=== PATIENT | male | born 1965 | race Two or more races ===

== ENCOUNTER 2024-04-07 09:27 | Outpatient (AMB) | payer MEDICAID, SELFPAY ==
--- NOTE | 2024-04-07 11:06 | PD.ORTHCLVIS ---
Vital signs 04/07/24 11:07 Height 1.6 m Height Method Stated Weight 146.539 kg Weight Measurement Method Standing Scale BMI 57.2 BP 157/96 H Blood Pressure Source Automatic Cuff Blood Pressure Location Left Upper Arm Position Sitting Respiration 19 Pulse 71 Pulse Source Monitor Temp 97.5 F Temp Source Temporal Artery Scan Pulse Oximetry (%) 88 L Oxygen Delivery Method Room Air Med/Allergies Allergies & Medications Allergies No Known Allergies Allergy (Verified 04/07/24 11:08) Medication Reconciliation aspirin 81 mg tablet,delayed release 81 mg PO QDAY 04/07/24 [History Confirmed 04/07/24] diclofenac sodium 1 % topical gel (Aleve (diclofenac)) 2 g topical QID 04/07/24 [History Confirmed 04/07/24] empagliflozin 25 mg tablet (Jardiance) 25 mg PO QAM 04/07/24 [History Confirmed 04/07/24] ergocalciferol (vitamin D2) 1,250 mcg (50,000 unit) capsule (Vitamin D2) 1,250 mcg PO QMONTH 04/07/24 [History Confirmed 04/07/24] gabapentin 400 mg capsule 400 mg PO QDAY 04/07/24 [History Confirmed 04/07/24] insulin lispro 200 unit/mL (3 mL) subcutaneous pen (Humalog KwikPen U-200 Insulin) 20 unit subcut QDAY 04/07/24 [History Confirmed 04/07/24] lidocaine 5 % topical patch 1 patch topical QDAY 04/07/24 [History Confirmed 04/07/24] lisinopril 40 mg tablet 40 mg PO QDAY 04/07/24 [History Confirmed 04/07/24] metformin 1,000 mg tablet 1,000 mg PO QDAY 04/07/24 [History Confirmed 04/07/24] semaglutide 0.25 mg or 0.5 mg (2 mg/3 mL) subcutaneous pen injector (Ozempic) 0.25 mg subcut QWEEK 04/07/24 [History Confirmed 04/07/24] simvastatin 20 mg tablet 20 mg PO QDAY 04/07/24 [History Confirmed 04/07/24] Subjective Visit Visit for: new patient and knee Immunization / Flu Flu Vaccine in the Last 12 Months: No Flu Vaccine Exclusion Criteria: No Exclusion Criteria History of Present Illness Chief complaint: Left knee pain Patient is a pleasant 59-year-old male with a left knee pain. He is morbidly obese with a BMI of 57. He has had 1 injection with minimal relief. He takes anti-inflammatories. He is walks with a cane Pain Pain level (0-10): 7 Pain duration: CONSTANT Pain location: inside (medial) Pain quality: sharp and aching Pain timing: night, increases with activity and stairs Associated signs & symptoms: numbness, weakness and stiffness Ambulatory data Ambulatory device: other (specify) (CRUTCHES) Treatments Improvement with previous injections: No Improvement with PT: No Improvement with NSAIDS: no Review of Systems Review of Systems: All systems negative unless otherwise noted in HPI. Exam Exam Patient is in no acute distress and is cooperative with the examination today. Breathing is nonlabored. In no respiratory distress. Bilateral extremities were evaluated and demonstrates sensation intact to light touch. Palpable pedal pulses are present. No significant edema is present. Bilateral hips were examined. The patient has no pain with log roll of the hips. Internal rotation to 30 degrees and external rotation to 30 degrees is painless. Negative FADIR. The left knee was examined. The left knee is in [varus] alignment. Range of motion from [0-115] degrees. Knee is stable to varus and valgus as well as AP translation with <5mm. Patient has a [negative] McMurrays. There is [no] pain with patellofemoral compression and [no] crepitus noted. The knee is [tender] to palpation [medially]. The right knee was also examined. The right knee is in [varus] alignment. Range of motion from [0-120] degrees. Knee is stable to varus and valgus as well as AP translation with <5mm. Patient has a [negative] McMurrays. There is [no] pain with patellofemoral compression and [no] crepitus noted. The knee is [tender] to palpation [medially]. Assessment and Plan Problem List (1) Degenerative arthritis of knee, bilateral: Status: Acute Plan: Patient is a 59-year-old male with bilateral knee pain and bilateral knee arthritis. We discussed nonoperative operative options. I ordered repeat x-rays as he does not have them with him. We will need weightbearing x-rays. He unfortunately is not a candidate for surgery. He is working on weight loss. We will likely do cortisone injections at the next visit as it has been 3 months. Office Procedures GNS Level of Care Nursing/Assessment Patient Status: Initial/New Patient Nursing Assessment/Reassesment: Medication Reconciliation, Update PMH in EMR and Vital Signs Coordination of Care: Complex Care and Chronic Disease 1-5, Education Complex Pt/Fam, Consent,records obtained, informed consent and Staff clarify orders Special Needs: Language special needs New Patient Charge New Patient Point Assignment: 1089 New Patient Point Charge: CHAIR INSPECTOR Level 3 ([id number]) Past Medical History Past Medical History Have you ever been diagnosed with any of the following: Respiratory Problems Smoking: No Smoking Exposure: No Endocrine Problems Diabetes Mellitus Type 1: Yes
[2024-04-07 11:07] VITALS: BP 157/96; PULSE 71; RESP 19; TEMP 36.4; O2SAT 88; BMI 57.2
== END 2024-04-07 11:32 | disposition home or self-care (01) ==
PROVIDERS: PCP Physician Assistant Medical; Referring Provider Physician Assistant Medical; Supervising Provider Orthopaedic Surgery Adult Reconstructive Orthopaedic Surgery; Visit Provider Orthopaedic Surgery Adult Reconstructive Orthopaedic Surgery
DX: M17.0 Bilateral primary osteoarthritis of knee (principal); M25.562 Pain in left knee; M25.561 Pain in right knee; E66.01 Morbid (severe) obesity due to excess calories; Z68.43 Body mass index [BMI] 50.0-59.9, adult
CPT/HCPCS: 99203; G0463

== ENCOUNTER 2024-04-21 14:16 | Outpatient (AMB) | payer MEDICARE, MEDICAID, SELFPAY ==
--- NOTE | 2024-04-21 13:11 | PD.ORTHTELE ---
Med/Allergies Allergies & Medications Allergies No Known Allergies Allergy (Verified 04/21/24 13:11) Medication Reconciliation aspirin 81 mg tablet,delayed release 81 mg PO QDAY 04/07/24 [History Confirmed 04/21/24] diclofenac sodium 1 % topical gel (Aleve (diclofenac)) 2 g topical QID 04/07/24 [History Confirmed 04/21/24] empagliflozin 25 mg tablet (Jardiance) 25 mg PO QAM 04/07/24 [History Confirmed 04/21/24] ergocalciferol (vitamin D2) 1,250 mcg (50,000 unit) capsule (Vitamin D2) 1,250 mcg PO QMONTH 04/07/24 [History Confirmed 04/21/24] gabapentin 400 mg capsule 400 mg PO QDAY 04/07/24 [History Confirmed 04/21/24] insulin lispro 200 unit/mL (3 mL) subcutaneous pen (Humalog KwikPen U-200 Insulin) 20 unit subcut QDAY 04/07/24 [History Confirmed 04/21/24] lidocaine 5 % topical patch 1 patch topical QDAY 04/07/24 [History Confirmed 04/21/24] lisinopril 40 mg tablet 40 mg PO QDAY 04/07/24 [History Confirmed 04/21/24] metformin 1,000 mg tablet 1,000 mg PO QDAY 04/07/24 [History Confirmed 04/21/24] semaglutide 0.25 mg or 0.5 mg (2 mg/3 mL) subcutaneous pen injector (Ozempic) 0.25 mg subcut QWEEK 04/07/24 [History Confirmed 04/21/24] simvastatin 20 mg tablet 20 mg PO QDAY 04/07/24 [History Confirmed 04/21/24] Subjective Visit Visit for: new patient, follow up visit, knee and x-rays Immunization / Flu Flu Vaccine in the Last 12 Months: No Flu Vaccine Exclusion Criteria: Refused by Patient and No Exclusion Criteria History of Present Illness Chief complaint: Left knee pain Patient is a pleasant 59-year-old male with a left knee pain. He is morbidly obese with a BMI of 57. He has had 1 injection with minimal relief. He takes anti-inflammatories. He walks with a cane. He is here for phone xray results. Pain Pain level (0-10): 7 Pain duration: CONSTANT Pain location: inside (medial) and outside (lateral) Pain quality: sharp, dull and aching Pain timing: night, increases with activity and stairs Associated signs & symptoms: numbness, weakness and stiffness Ambulatory data Ambulatory device: other (specify) (CRUTCHES) and none Treatments Improvement with previous injections: No Improvement with PT: No Improvement with NSAIDS: no Review of Systems Review of Systems: All systems negative unless otherwise noted in HPI. Assessment and Plan Problem List (1) Degenerative arthritis of knee, bilateral: Status: Acute Plan: Patient is a 59-year-old male with bilateral knee pain and bilateral knee arthritis. We discussed nonoperative operative options. He has bone on bone arthritis of significant severity bilaterally. He unfortunately is not a candidate for surgery given his BMI at this time. He is working on weight loss. We will plan for an injection at the next visit in 2 months. Office Procedures GNS Level of Care Nursing/Assessment Patient Status: Established Patient Nursing Assessment/Reassesment: Medication Reconciliation, Update PMH in EMR and Vital Signs Coordination of Care: Complex Care and Chronic Disease 1-5, Education Complex Pt/Fam, Consent,records obtained, informed consent, 1 Ins Authorization, Results/Orders obtained and Staff clarify orders Special Needs: Language special needs Established Patient Charge Established Patient Point Assignment: 110 Telehealth Telemed Phone/Video with patient at home & ,PA,MAINTENANCE MECHANIC TECHNICIAN: Yes
== END 2024-04-21 14:16 | disposition home or self-care (01) ==
LOC: HODSRG 14:16
PROVIDERS: PCP Physician Assistant Medical; Referring Provider Physician Assistant Medical; Supervising Provider Orthopaedic Surgery Adult Reconstructive Orthopaedic Surgery; Visit Provider Orthopaedic Surgery Adult Reconstructive Orthopaedic Surgery
DX: M17.0 Bilateral primary osteoarthritis of knee (principal); M25.562 Pain in left knee; M25.561 Pain in right knee; E66.01 Morbid (severe) obesity due to excess calories; Z68.43 Body mass index [BMI] 50.0-59.9, adult
CPT/HCPCS: 99212; G0463

== ENCOUNTER 2024-07-10 12:59 | Outpatient (AMB) | payer MEDICARE, MEDICAID, SELFPAY ==
[2024-07-10 13:11] VITALS: BP 137/73; PULSE 83; RESP 20; TEMP 36.6; O2SAT 87; BMI 58.5
--- NOTE | 2024-07-10 13:11 | ORTHONT_ITS ---
Vital signs 07/10/24 13:11 Height 1.6 m Height Method Stated Weight 149.884 kg Weight Measurement Method Standing Scale BMI 58.5 BP 137/73 H Blood Pressure Source Automatic Cuff Blood Pressure Location Right Upper Arm Position Sitting Respiration 20 Pulse 83 Pulse Source Monitor Temp 97.8 F Temp Source Temporal Artery Scan Pulse Oximetry (%) 87 L Oxygen Delivery Method Room Air Med/Allergies Allergies & Medications Allergies No Known Allergies Allergy (Verified 07/10/24 13:12) Medication Reconciliation aspirin 81 mg tablet,delayed release 81 mg PO QDAY 04/07/24 [History Confirmed 07/10/24] diclofenac sodium 1 % topical gel (Aleve (diclofenac)) 2 g topical QID 04/07/24 [History Confirmed 07/10/24] empagliflozin 25 mg tablet (Jardiance) 25 mg PO QAM 04/07/24 [History Confirmed 07/10/24] ergocalciferol (vitamin D2) 1,250 mcg (50,000 unit) capsule (Vitamin D2) 1,250 mcg PO QMONTH 04/07/24 [History Confirmed 07/10/24] gabapentin 400 mg capsule 400 mg PO QDAY 04/07/24 [History Confirmed 07/10/24] insulin lispro 200 unit/mL (3 mL) subcutaneous pen (Humalog KwikPen U-200 Insulin) 20 unit subcut QDAY 04/07/24 [History Confirmed 07/10/24] lidocaine 5 % topical patch 1 patch topical QDAY 04/07/24 [History Confirmed 07/10/24] lisinopril 40 mg tablet 40 mg PO QDAY 04/07/24 [History Confirmed 07/10/24] metformin 1,000 mg tablet 1,000 mg PO QDAY 04/07/24 [History Confirmed 07/10/24] semaglutide 0.25 mg or 0.5 mg (2 mg/3 mL) subcutaneous pen injector (Ozempic) 0.25 mg subcut QWEEK 04/07/24 [History Confirmed 07/10/24] simvastatin 20 mg tablet 20 mg PO QDAY 04/07/24 [History Confirmed 07/10/24] Exam Exam Patient is in no acute distress and is cooperative with the examination today. Breathing is nonlabored. In no respiratory distress. Bilateral extremities were evaluated and demonstrates sensation intact to light touch. Palpable pedal pulses are present. No significant edema is present. Bilateral hips were examined. The patient has no pain with log roll of the hips. Internal rotation to 30 degrees and external rotation to 30 degrees is painless. Negative FADIR. The left knee was examined. The left knee is in [varus] alignment. Range of motion from [0-115] degrees. Knee is stable to varus and valgus as well as AP translation with <5mm. Patient has a [negative] McMurrays. There is [no] pain with patellofemoral compression and [no] crepitus noted. The knee is [tender] to palpation [medially]. The right knee was also examined. The right knee is in [varus] alignment. Range of motion from [0-120] degrees. Knee is stable to varus and valgus as well as AP translation with <5mm. Patient has a [negative] McMurrays. There is [no] pain with patellofemoral compression and [no] crepitus noted. The knee is [tender] to palpation [medially]. Assessment and Plan Problem List (1) Degenerative arthritis of knee, bilateral: Status: Acute Plan: Patient is a 59-year-old male with bilateral knee pain and bilateral knee arthritis. We discussed nonoperative operative options. He has bone on bone arthritis of significant severity bilaterally. He unfortunately is not a candidate for surgery given his BMI at this time. He is working on weight loss. Recommend knee cortisone injections as patient would like to proceed with conservative treatment at this time. The risks and benefits of the procedure were reviewed with the patient and patient gave verbal consent to continue with the procedure. Procedure: performed by Dr. Lowe Using sterile technique the Bilateral knees were thoroughly prepped with alcohol, and approximately 1 cc of Kenalog 40 mg/mL and 4 cc of 1% lidocaine was injected into each knee without resistance into the medial tibial femoral joint space. The patient tolerated the procedure. Office Procedures GNS Level of Care Nursing/Assessment Patient Status: Established Patient Nursing Assessment/Reassesment: Medication Reconciliation, Update PMH in EMR and Vital Signs Coordination of Care: Complex Care and Chronic Disease 1-5, Education Complex Pt/Fam, Consent,records obtained, informed consent, Results/Orders obtained and Staff clarify orders Special Needs: Language special needs Established Patient Charge Established Patient Point Assignment: 95 Established Patient Point Charge: EP Level 3 (80-115) Surgical Proc/IM SQ injection Major Surgical Procedure: Yes (KNEE INJECTIONS ) Medication Given Medication Given Medication Given: Yes Documented Dose Given: 8 Route: Infiitration Medication Given Medication Given Medication Given: Yes Documented Dose Given: 2 Route: Infiitration Office Meds Xylocaine 10 mg/mL (1 %) injection solution Performing Provider: Maxwell Lowe MD Performing Location: [facility] Administered by: Maxwell Lowe MD on 07/10/24 13:24 Dose Route Admin Location Dispensed Lot Number Expiration Date [facility] Resident Medical Officer 40 mL Infiltration 40 mL [id number] [employer] triamcinolone acetonide 40 mg/mL suspension for injection Performing Provider: Maxwell Lowe MD Performing Location: [facility] Administered by: Maxwell Lowe MD on 07/10/24 13:24 Dose Route Admin Location Dispensed Lot Number Expiration Date [facility] Resident Medical Officer 80 mg intra-articular 2 mL [id number] [employer] [place] Intake Visit Data Collection New Patient or Established: Established Patient (seen at [facility] within 3 years) Reason for Visit:: REQ KNEE INJECTIONS Seen by Clinical Staff ONLY (RN/MA): No Marketing Senior Recruiter Required: Yes PCP or OBGYN visit in last 3 months: Yes Hx Now: No Do You Feel Safe at Home: Yes Authorities Contacted: N/A Questionairres Past Medical History Past Medical History Have you ever been diagnosed with any of the following: Respiratory Problems Smoking: No Smoking Exposure: No Endocrine Problems Diabetes Mellitus Type 1: Yes Subjective Visit Visit for: follow up visit, knee and injections Immunization / Flu Flu Vaccine in the Last 12 Months: No Flu Vaccine Exclusion Criteria: No Exclusion Criteria History of Present Illness Chief complaint: bilateral knee pain Maternal Sherron fields patient is a 59-year-old male with bilateral knee pain and bilateral knee arthritis. He had injections previously . He is working on losing weight and is on Ozempic Pain Pain level (0-10): 8 Pain duration: ALL DAY Pain location: anterior Pain quality: sharp Pain timing: increases with activity and stairs Associated signs & symptoms: none Ambulatory data Ambulatory device: other (specify) (CRUTCH) Treatments Improvement with previous injections: No Improvement with PT: No Improvement with NSAIDS: no Review of Systems Review of Systems: All systems negative unless otherwise noted in HPI.
== END 2024-07-10 13:23 | disposition home or self-care (01) ==
LOC: HODSRG 12:59
PROVIDERS: PCP Physician Assistant Medical; Referring Provider Physician Assistant Medical; Supervising Provider Orthopaedic Surgery Adult Reconstructive Orthopaedic Surgery; Visit Provider Orthopaedic Surgery Adult Reconstructive Orthopaedic Surgery
DX: M17.0 Bilateral primary osteoarthritis of knee (principal); M25.562 Pain in left knee; M25.561 Pain in right knee; E10.9 Type 1 diabetes mellitus without complications
CPT/HCPCS: 20610; 99213; J3301; J3490; G0463

== ENCOUNTER 2024-10-06 13:05 | Outpatient (AMB) | payer MEDICARE, MEDICAID, SELFPAY ==
[2024-10-06 13:23] VITALS: BP 123/72; PULSE 89; RESP 18; TEMP 36.4; O2SAT 85; BMI 57.4
--- NOTE | 2024-10-06 13:23 | ORTHONT_ITS ---
Vital signs 10/06/24 13:23 Height 1.6 m Height Method Stated Weight 147.049 kg Weight Measurement Method Standing Scale BMI 57.4 BP 123/72 Blood Pressure Source Automatic Cuff Blood Pressure Location Left Upper Arm Position Sitting Respiration 18 Pulse 89 Pulse Source Monitor Temp 97.6 F Temp Source Temporal Artery Scan Pulse Oximetry (%) 85 L Oxygen Delivery Method Room Air Med/Allergies Allergies & Medications Allergies No Known Allergies Allergy (Verified 10/06/24 13:25) Medication Reconciliation aspirin 81 mg tablet,delayed release 81 mg PO QDAY 04/07/24 [History Confirmed 10/06/24] diclofenac sodium 1 % topical gel (Aleve (diclofenac)) 2 g topical QID 04/07/24 [History Confirmed 10/06/24] empagliflozin 25 mg tablet (Jardiance) 25 mg PO QAM 04/07/24 [History Confirmed 10/06/24] ergocalciferol (vitamin D2) 1,250 mcg (50,000 unit) capsule (Vitamin D2) 1,250 mcg PO QMONTH 04/07/24 [History Confirmed 10/06/24] gabapentin 400 mg capsule 400 mg PO QDAY 04/07/24 [History Confirmed 10/06/24] insulin lispro 200 unit/mL (3 mL) subcutaneous pen (Humalog KwikPen U-200 Insulin) 20 unit subcut QDAY 04/07/24 [History Confirmed 10/06/24] lidocaine 5 % topical patch 1 patch topical QDAY 04/07/24 [History Confirmed 10/06/24] lisinopril 40 mg tablet 40 mg PO QDAY 04/07/24 [History Confirmed 10/06/24] metformin 1,000 mg tablet 1,000 mg PO QDAY 04/07/24 [History Confirmed 10/06/24] semaglutide 0.25 mg or 0.5 mg (2 mg/3 mL) subcutaneous pen injector (Ozempic) 0.25 mg subcut QWEEK 04/07/24 [History Confirmed 10/06/24] simvastatin 20 mg tablet 20 mg PO QDAY 04/07/24 [History Confirmed 10/06/24] Exam Exam Patient is in no acute distress and is cooperative with the examination today. Breathing is nonlabored. In no respiratory distress. Bilateral extremities were evaluated and demonstrates sensation intact to light touch. Palpable pedal pulses are present. No significant edema is present. Bilateral hips were examined. The patient has no pain with log roll of the hips. Internal rotation to 30 degrees and external rotation to 30 degrees is painless. Negative FADIR. The left knee was examined. The left knee is in [varus] alignment. Range of motion from [0-115] degrees. Knee is stable to varus and valgus as well as AP translation with <5mm. Patient has a [negative] McMurrays. There is [no] pain with patellofemoral compression and [no] crepitus noted. The knee is [tender] to palpation [medially]. The right knee was also examined. The right knee is in [varus] alignment. Range of motion from [0-120] degrees. Knee is stable to varus and valgus as well as AP translation with <5mm. Patient has a [negative] McMurrays. There is [no] pain with patellofemoral compression and [no] crepitus noted. The knee is [tender] to palpation [medially]. X-rays demonstrate complete joint space narrowing medially with varus arthritis Assessment and Plan Problem List (1) Degenerative arthritis of knee, bilateral: Status: Acute Plan: Patient is a 59-year-old male with bilateral knee pain and bilateral knee arthritis. We discussed nonoperative operative options. He has bone on bone arthritis of significant severity bilaterally. He unfortunately is not a candidate for surgery given his BMI at this time. He is working on weight loss. Recommend knee cortisone injections as patient would like to proceed with conservative treatment at this time. The risks and benefits of the procedure were reviewed with the patient and patient gave verbal consent to continue with the procedure. Procedure: performed by Dr. Lowe Using sterile technique the Bilateral knees were thoroughly prepped with alcohol, and approximately 1 cc of Kenalog 40 mg/mL and 4 cc of 1% lidocaine was injected into each knee without resistance into the medial tibial femoral joint space. The patient tolerated the procedure. Office Procedures GNS Level of Care Nursing/Assessment Patient Status: Established Patient Nursing Assessment/Reassesment: Medication Reconciliation, Update PMH in EMR and Vital Signs Coordination of Care: Complex Care and Chronic Disease 1-5, Education Complex Pt/Fam, Consent,records obtained, informed consent, Results/Orders obtained and Staff clarify orders Special Needs: Language special needs Established Patient Charge Established Patient Point Assignment: 95 Established Patient Point Charge: EP Level 2 (40-75) Surgical Proc/IM SQ injection Major Surgical Procedure: Yes Medication Given Medication Given Medication Given: Yes Documented Dose Given: 8 Route: Infiitration Medication Given Medication Given Medication Given: Yes Documented Dose Given: 2 Route: Infiitration Office Meds Xylocaine 10 mg/mL (1 %) injection solution Performing Provider: Maxwell Lowe MD Performing Location: [facility] Administered by: Maxwell Lowe MD on 10/06/24 13:28 Dose Route Admin Location Dispensed Lot Number Expiration Date [facility] Insurance Claims Representative 40 mL Infiltration 40 mL [id number] 12/15/27 87163-004-09 [facility] triamcinolone acetonide 40 mg/mL suspension for injection Performing Provider: Maxwell Lowe MD Performing Location: [facility] Administered by: Maxwell Lowe MD on 10/06/24 13:28 Dose Route Admin Location Dispensed Lot Number Expiration Date [facility] Insurance Claims Representative 80 mg intra-articular 2 mL [id number] 04/15/26 8945-4026-60 [facility] [place] Intake Visit Data Collection New Patient or Established: Established Patient (seen at [facility] within 3 years) Reason for Visit:: KNEE PAIN Seen by Clinical Staff ONLY (RN/MA): No Verbal consent obtained for Telemed visit?: No Spa Director Required: Yes PCP or OBGYN visit in last 3 months: Yes Hx Now: No Do You Feel Safe at Home: Yes Authorities Contacted: N/A Questionairres Past Medical History Past Medical History Have you ever been diagnosed with any of the following: Respiratory Problems Smoking: No Smoking Exposure: No Endocrine Problems Diabetes Mellitus Type 1: Yes Subjective Visit Visit for: follow up visit, knee and injections Immunization / Flu Flu Vaccine in the Last 12 Months: Yes Flu Vaccine Exclusion Criteria: No Exclusion Criteria and Already Received History of Present Illness Chief complaint: bilateral knee pain Maternal Sherron Muñiz now patient is a 59-year-old male with bilateral knee pain and bilateral knee arthritis. He had injections previously . He is working on losing weight and is on Ozempic. However, he has gained 10 pounds since we last saw him. Pain Pain level (0-10): 8 Pain duration: ALL DAY Pain location: inside (medial), outside (lateral), anterior and posterior Pain quality: sharp, dull and aching Pain timing: increases with activity and stairs Associated signs & symptoms: none Ambulatory data Ambulatory device: other (specify) (CRUTCHES) Treatments Improvement with previous injections: No Improvement with PT: No Improvement with NSAIDS: no Review of Systems Review of Systems: All systems negative unless otherwise noted in HPI.
== END 2024-10-06 13:35 | disposition home or self-care (01) ==
PROVIDERS: PCP Physician Assistant Medical; Referring Provider Physician Assistant Medical; Supervising Provider Orthopaedic Surgery Adult Reconstructive Orthopaedic Surgery; Visit Provider Orthopaedic Surgery Adult Reconstructive Orthopaedic Surgery
DX: M17.0 Bilateral primary osteoarthritis of knee (principal)
CPT/HCPCS: 20610; 99212; J3301; J3490; G0463

== ENCOUNTER 2025-01-05 13:36 | Outpatient (AMB) | payer MEDICARE, MEDICAID, SELFPAY ==
[2025-01-05 13:50] VITALS: BP 172/93; PULSE 69; RESP 18; TEMP 36.2; O2SAT 88; BMI 59.8
--- NOTE | 2025-01-05 13:50 | PD.ORTHCLVIS ---
Vital signs 01/05/25 13:50 Height 1.6 m Height Method Stated Weight 153.116 kg Weight Measurement Method Standing Scale BMI 59.8 BP 172/93 H Blood Pressure Source Automatic Cuff Blood Pressure Location Left Upper Arm Position Sitting Respiration 18 Pulse 69 Pulse Source Monitor Temp 97.2 F Temp Source Temporal Artery Scan Pulse Oximetry (%) 88 L Oxygen Delivery Method Room Air Med/Allergies Allergies & Medications Allergies No Known Allergies Allergy (Verified 01/05/25 13:51) Medication Reconciliation aspirin 81 mg tablet,delayed release 81 mg PO QDAY 04/07/24 [History Confirmed 01/05/25] diclofenac sodium 1 % topical gel (Aleve (diclofenac)) 2 g topical QID 04/07/24 [History Confirmed 01/05/25] empagliflozin 25 mg tablet (Jardiance) 25 mg PO QAM 04/07/24 [History Confirmed 01/05/25] ergocalciferol (vitamin D2) 1,250 mcg (50,000 unit) capsule (Vitamin D2) 1,250 mcg PO QMONTH 04/07/24 [History Confirmed 01/05/25] gabapentin 400 mg capsule 400 mg PO QDAY 04/07/24 [History Confirmed 01/05/25] insulin lispro 200 unit/mL (3 mL) subcutaneous pen (Humalog KwikPen U-200 Insulin) 20 unit subcut QDAY 04/07/24 [History Confirmed 01/05/25] lidocaine 5 % topical patch 1 patch topical QDAY 04/07/24 [History Confirmed 01/05/25] lisinopril 40 mg tablet 40 mg PO QDAY 04/07/24 [History Confirmed 01/05/25] metformin 1,000 mg tablet 1,000 mg PO QDAY 04/07/24 [History Confirmed 01/05/25] semaglutide 0.25 mg or 0.5 mg (2 mg/3 mL) subcutaneous pen injector (Ozempic) 0.25 mg subcut QWEEK 04/07/24 [History Confirmed 01/05/25] simvastatin 20 mg tablet 20 mg PO QDAY 04/07/24 [History Confirmed 01/05/25] Exam Exam Patient is in no acute distress and is cooperative with the examination today. Breathing is nonlabored. In no respiratory distress. Bilateral extremities were evaluated and demonstrates sensation intact to light touch. Palpable pedal pulses are present. No significant edema is present. Bilateral hips were examined. The patient has no pain with log roll of the hips. Internal rotation to 30 degrees and external rotation to 30 degrees is painless. Negative FADIR. The left knee was examined. The left knee is in [varus] alignment. Range of motion from [0-115] degrees. Knee is stable to varus and valgus as well as AP translation with <5mm. Patient has a [negative] McMurrays. There is [no] pain with patellofemoral compression and [no] crepitus noted. The knee is [tender] to palpation [medially]. The right knee was also examined. The right knee is in [varus] alignment. Range of motion from [0-120] degrees. Knee is stable to varus and valgus as well as AP translation with <5mm. Patient has a [negative] McMurrays. There is [no] pain with patellofemoral compression and [no] crepitus noted. The knee is [tender] to palpation [medially]. X-rays demonstrate complete joint space narrowing medially with varus arthritis Assessment and Plan Problem List (1) Degenerative arthritis of knee, bilateral: Status: Acute Plan: Patient is a 59-year-old male with bilateral knee pain and bilateral knee arthritis. We discussed nonoperative operative options. He has bone on bone arthritis of significant severity bilaterally. He unfortunately is not a candidate for surgery given his BMI at this time. He is working on weight loss. Recommend knee cortisone injections as patient would like to proceed with conservative treatment at this time. The risks and benefits of the procedure were reviewed with the patient and patient gave verbal consent to continue with the procedure. Procedure: performed by Dr. Lowe Using sterile technique the Bilateral knees were thoroughly prepped with alcohol, and approximately 1 cc of Kenalog 40 mg/mL and 4 cc of 1% lidocaine was injected into each knee without resistance into the medial tibial femoral joint space. The patient tolerated the procedure. Office Procedures GNS Level of Care Nursing/Assessment Patient Status: Established Patient Nursing Assessment/Reassesment: Medication Reconciliation, Update PMH in EMR and Vital Signs Coordination of Care: Complex Care and Chronic Disease 1-5, Education Complex Pt/Fam, Consent,records obtained, informed consent, Results/Orders obtained and Staff clarify orders Special Needs: Language special needs Established Patient Charge Established Patient Point Assignment: 95 Established Patient Point Charge: EP Level 3 (80-115) Surgical Proc/IM SQ injection Major Surgical Procedure: Yes (BILATERAL KNEE INJECTION) Medication Given Medication Given Medication Given: Yes Documented Dose Given: 1 Route: Infiitration Medication Given Medication Given Medication Given: Yes Documented Dose Given: 1 Route: Infiitration Medication Given Medication Given Medication Given: Yes Documented Dose Given: 4 Route: Infiitration Medication Given Medication Given Medication Given: Yes Documented Dose Given: 4 Route: Infiitration Office Meds Xylocaine 10 mg/mL (1 %) injection solution Performing Provider: Maxwell Lowe MD Performing Location: [facility] Documented (not given) by: Maxwell Lowe MD on 01/05/25 14:21 Reason Not Given: Entered in Error Comments: NOT GIVEN methylprednisolone acetate 80 mg/mL suspension for injection Performing Provider: Maxwell Lowe MD Performing Location: [facility] Administered by: Maxwell Lowe MD on 01/05/25 15:19 Dose Route Admin Location Dispensed Lot Number Expiration Date [facility] [employer] 80 mg intra-articular 1 mL methylprednisolone acetate 80 mg/mL suspension for injection Performing Provider: Maxwell Lowe MD Performing Location: [facility] Administered by: Maxwell Lowe MD on 01/05/25 15:19 Dose Route Admin Location Dispensed Lot Number Expiration Date [facility] [employer] 80 mg intra-articular 1 mL ropivacaine (PF) 2 mg/mL (0.2 %) injection solution Performing Provider: Maxwell Lowe MD Performing Location: [facility] Administered by: Maxwell Lowe MD on 01/05/25 15:19 Dose Route Admin Location Dispensed Lot Number Expiration Date [facility] [employer] 20 mL Infiltration 20 mL ropivacaine (PF) 2 mg/mL (0.2 %) injection solution Performing Provider: Maxwell Lowe MD Performing Location: [facility] Administered by: Maxwell Lowe MD on 01/05/25 15:19 Dose Route Admin Location Dispensed Lot Number Expiration Date [facility] [employer] 20 mL Infiltration 20 mL triamcinolone acetonide 40 mg/mL suspension for injection Performing Provider: Maxwell Lowe MD Performing Location: [facility] Documented (not given) by: Maxwell Lowe MD on 01/05/25 14:21 Reason Not Given: Entered in Error Comments: NOT GIVEN MA Intake Visit Data Collection New Patient or Established: Established Patient (seen at [facility] within 3 years) Reason for Visit:: 3 MTH BL KNEE INJ FOLLOW UP Seen by Clinical Staff ONLY (RN/MA): No Punch Operator Required: Yes PCP or OBGYN visit in last 3 months: Yes Hx Now: No Do You Feel Safe at Home: Yes Authorities Contacted: N/A Questionairres Past Medical History Past Medical History Have you ever been diagnosed with any of the following: Respiratory Problems Smoking: No Smoking Exposure: No Endocrine Problems Diabetes Mellitus Type 1: Yes Subjective Visit Visit for: follow up visit, knee and injections Immunization / Flu Flu Vaccine in the Last 12 Months: No Flu Vaccine Exclusion Criteria: No Exclusion Criteria History of Present Illness Chief complaint: bilateral knee pain Maternal Sherron Muñiz now patient is a 59-year-old male with bilateral knee pain and bilateral knee arthritis. He had injections previously . He is working on losing weight and is on Ozempic. However, he has gained 12 pounds since we last saw him. Pain Pain level (0-10): 6 Pain duration: ON AND OFF Pain location: anterior Pain quality: dull and aching Pain timing: night and increases with activity Associated signs & symptoms: none Ambulatory data Ambulatory device: none Treatments Number of previous injections: 2 Improvement with previous injections: Yes Improvement with PT: No Improvement with NSAIDS: no Review of Systems Review of Systems: All systems negative unless otherwise noted in HPI.
== END 2025-01-05 14:05 | disposition home or self-care (01) ==
PROVIDERS: PCP Physician Assistant Medical; Referring Provider Physician Assistant Medical; Supervising Provider Orthopaedic Surgery Adult Reconstructive Orthopaedic Surgery; Visit Provider Orthopaedic Surgery Adult Reconstructive Orthopaedic Surgery
DX: M17.0 Bilateral primary osteoarthritis of knee (principal); M25.562 Pain in left knee; M25.561 Pain in right knee; E10.9 Type 1 diabetes mellitus without complications
CPT/HCPCS: 20610; 99213; J1010; J2795; G0463

== ENCOUNTER 2025-04-08 13:53 | Outpatient (AMB) | payer OTHER, MEDICAID, SELFPAY ==
--- NOTE | 2025-04-08 14:21 | PD.ORTHCLVIS ---
Med/Allergies Allergies & Medications Allergies No Known Allergies Allergy (Verified 01/05/25 13:51) Exam Exam Patient is in no acute distress and is cooperative with the examination today. Breathing is nonlabored. In no respiratory distress. Bilateral extremities were evaluated and demonstrates sensation intact to light touch. Palpable pedal pulses are present. No significant edema is present. Bilateral hips were examined. The patient has no pain with log roll of the hips. Internal rotation to 30 degrees and external rotation to 30 degrees is painless. Negative FADIR. The left knee was examined. The left knee is in [varus] alignment. Range of motion from [0-115] degrees. Knee is stable to varus and valgus as well as AP translation with <5mm. Patient has a [negative] McMurrays. There is [no] pain with patellofemoral compression and [no] crepitus noted. The knee is [tender] to palpation [medially]. The right knee was also examined. The right knee is in [varus] alignment. Range of motion from [0-120] degrees. Knee is stable to varus and valgus as well as AP translation with <5mm. Patient has a [negative] McMurrays. There is [no] pain with patellofemoral compression and [no] crepitus noted. The knee is [tender] to palpation [medially]. X-rays demonstrate complete joint space narrowing medially with varus arthritis Assessment and Plan Problem List (1) Degenerative arthritis of knee, bilateral: Status: Acute Plan: Patient is a 59-year-old male with bilateral knee pain and bilateral knee arthritis. We discussed nonoperative operative options. He has bone on bone arthritis of significant severity bilaterally. He unfortunately is not a candidate for surgery given his BMI at this time. He is working on weight loss. Recommend knee cortisone injection as patient would like to proceed with conservative treatment at this time. The risks and benefits of the procedure were reviewed with the patient and patient gave verbal consent to continue with the procedure. Procedure: performed by Dr. Lowe Using sterile technique the Right knee was thoroughly prepped with alcohol, and approximately 1 cc of Depo-Medrol 80mg/mL and 4 cc of 0.2% ropivacaine was injected without resistance into the medial tibial femoral joint space. The patient tolerated the procedure. Recommend knee cortisone injection as patient would like to proceed with conservative treatment at this time. The risks and benefits of the procedure were reviewed with the patient and patient gave verbal consent to continue with the procedure. Procedure: performed by Dr. Lowe Using sterile technique the leftknee was thoroughly prepped with alcohol, and approximately 1 cc of Depo-Medrol 80mg/mL and 4 cc of 0.2% ropivacaine was injected without resistance into the medial tibial femoral joint space. The patient tolerated the procedure. MA Intake Visit Data Collection New Patient or Established: Established Patient (seen at [facility] within 3 years) Reason for Visit:: 3 MTH BL KNEE INJ FOLLOW UP Seen by Clinical Staff ONLY (RN/MA): No Revenue Cycle Specialist Required: Yes PCP or OBGYN visit in last 3 months: Yes Hx Now: No Do You Feel Safe at Home: Yes Authorities Contacted: N/A Questionairres Past Medical History Past Medical History Have you ever been diagnosed with any of the following: Respiratory Problems Smoking: No Smoking Exposure: No Endocrine Problems Diabetes Mellitus Type 1: Yes Subjective Visit Visit for: follow up visit, knee and injections Immunization / Flu Flu Vaccine in the Last 12 Months: No Flu Vaccine Exclusion Criteria: No Exclusion Criteria History of Present Illness Chief complaint: bilateral knee pain Maternal Sherron fields patient is a 59-year-old male with bilateral knee pain and bilateral knee arthritis. He had injections previously . He is working on losing weight and is on Ozempic. However, he has stopped ozempic. He would like bilateral knee injections today Pain Pain level (0-10): 6 Pain duration: ON AND OFF Pain location: anterior Pain quality: dull and aching Pain timing: night and increases with activity Associated signs & symptoms: none Ambulatory data Ambulatory device: none Treatments Number of previous injections: 2 Improvement with previous injections: Yes Improvement with PT: No Improvement with NSAIDS: no Review of Systems Review of Systems: All systems negative unless otherwise noted in HPI.
[2025-04-08 14:26] VITALS: BP 137/82; PULSE 80; RESP 19; TEMP 36.8
== END 2025-04-08 14:26 | disposition home or self-care (01) ==
LOC: HODSRG 13:53
PROVIDERS: PCP Physician Assistant Medical; Referring Provider Physician Assistant Medical; Supervising Provider Orthopaedic Surgery Adult Reconstructive Orthopaedic Surgery; Visit Provider Orthopaedic Surgery Adult Reconstructive Orthopaedic Surgery
DX: M25.562 Pain in left knee (principal); M25.561 Pain in right knee; M17.0 Bilateral primary osteoarthritis of knee; E10.9 Type 1 diabetes mellitus without complications
CPT/HCPCS: 20610; 99213; J1010; J2795; G0463